=== PATIENT | female | born 1965 | race Caucasian/White ===

== ENCOUNTER → 2017-05-04 | Outpatient (CLI) | payer MEDICARE | LOC: KOH-I 10:44 | DX: R05 Cough (principal); J44.9 Chronic obstructive pulmonary disease, unspecified; K44.9 Diaphragmatic hernia without obstruction or gangrene | CPT/HCPCS: 71020 ==

== ENCOUNTER → 2021-12-23 | Emergency (ER) | payer MEDICARE, OTHER ==
[~2021-12-23] MED LIST: LOPRESSOR 25 MG25 MG PO; MYCOSTATIN100000 UTS PO; VISTARIL25 MG PO
== END | disposition home or self-care (01) ==
LOC: ER1 01:13
DX: B37.0 Candidal stomatitis (principal); I10 Essential (primary) hypertension; E03.9 Hypothyroidism, unspecified; F17.210 Nicotine dependence, cigarettes, uncomplicated
CPT/HCPCS: 99283